=== PATIENT | female | born 1995 | race Caucasian/White ===

== ENCOUNTER 2016-10-21 20:16 | Emergency (ER) | payer BC ==
[2016-10-21] MEDS ORDERED: ACETAMINOPHEN 325 MG TABLET PO ONE (21:23)
--- NOTE | 2016-10-21 21:24 | ER Document Report ---
ED Medical Screen (RME) - General Chief Complaint: Vaginal Bleeding Stated Complaint: ABDOMINAL PAIN Mode of Arrival: Ambulatory Information source: Patient Notes: 21 y/o F presents to ED complaining of intermittent vaginal bleeding and pelvic pain. Reports last menstrual period was irregular and unsure if she may be . I have greeted and performed a rapid initial assessment of this patient. A comprehensive ED assessment and evaluation of the patient, analysis of test results and completion of the medical decision making process will be conducted by additional ED providers. TRAVEL OUTSIDE OF THE [place] IN LAST 30 DAYS: No - Related Data Allergies/Adverse Reactions: amoxicillin Allergy (Verified 07/23/16 11:41) azithromycin [From Zithromax] Allergy (Verified 05/07/16 14:58) clarithromycin [From Biaxin] Allergy (Verified 05/07/16 14:58) Past Medical History Renal/ Medical History: Reports: Hx Ovarian Cysts Past Surgical History: Reports: Hx Appendectomy Physical Exam - General General appearance: Appears well, Alert In distress: None
--- NOTE | 2016-10-21 23:03 | ER Document Report ---
ED GI/ - General Chief Complaint: Vaginal Bleeding Stated Complaint: ABDOMINAL PAIN Time seen by provider: 23:00 Mode of Arrival: Ambulatory Information source: Patient TRAVEL OUTSIDE OF THE [place] IN LAST 30 DAYS: No - HPI Patient complains to provider of: Pelvic pain, Vaginal bleeding, Vaginal discharge Onset: Other - 2 weeks Timing/Duration: Gradual, Persistent, Worse Quality of pain: Achy, Cramping Severity at maximum: Mild Severity in ED: Mild Location: Suprapubic, Pelvis Vaginal bleeding (Compared to normal period): Spotting, Heavier, Passing clots Menstrual period history: Abnormal Associated symptoms: Diarrhea, Nausea Exacerbated by: Denies Relieved by: Denies Similar symptoms previously: No Recently seen / treated by doctor: No Notes: 10/21/16 23:01 Patient is a 21-year-old female with a history of ovarian cysts and hypothyroidism who presents to the emergency room complaining of abnormal vaginal bleeding, states she was supposed to start her menstrual cycle on 2016, 2 days prior to that she started having light spotting, today she started having heavier bleeding with passage of clots and pelvic cramping, states she did test at home which stated "invalid", she reports some nausea and mild diarrhea today, no fever or chills, prior to vaginal bleeding she reports some yellowish vaginal discharge, patient received Tylenol prior to my evaluation and reports her pain and cramping is resolved, patient has no previous pregnancies - Related Data Allergies/Adverse Reactions: amoxicillin Allergy (Verified 07/23/16 11:41) azithromycin [From Zithromax] Allergy (Verified 05/07/16 14:58) clarithromycin [From Biaxin] Allergy (Verified 05/07/16 14:58) Past Medical History - General Information source: Patient - Social History Smoking Status: Current Every Day Smoker Family History: Reviewed & Not Pertinent Patient has suicidal ideation: No Patient has homicidal ideation: No Renal/ Medical History: Reports: Hx Ovarian Cysts. Denies: Hx Peritoneal Dialysis Past Surgical History: Reports: Hx Appendectomy Review of Systems - Review of Systems Constitutional: No symptoms reported EENT: No symptoms reported Cardiovascular: No symptoms reported Respiratory: No symptoms reported Gastrointestinal: See HPI Genitourinary: See HPI Female Genitourinary: See HPI Musculoskeletal: No symptoms reported Skin: No symptoms reported Hematologic/Lymphatic: No symptoms reported Neurological/Psychological: No symptoms reported -: Yes All other systems reviewed and negative Physical Exam - Vital signs Interpretation: Normal - General General appearance: Appears well, Alert - HEENT Head: Normocephalic, Atraumatic Eyes: Normal Pupils: PERRL - Respiratory Respiratory status: No respiratory distress Chest status: Nontender Breath sounds: Normal Chest palpation: Normal - Cardiovascular Rhythm: Regular Heart sounds: Normal auscultation Murmur: No - Abdominal Inspection: Normal Distension: No distension Bowel sounds: Normal Tenderness: Nontender Organomegaly: No organomegaly - Genitourinary External exam: Normal Speculum exam: Cervix closed Vaginal bleeding: Mild Bimanuel exam: Other - Left adnexal tenderness - Back Back: Normal, Nontender - Extremities General upper extremity: Normal inspection, Nontender, Normal color, Normal ROM , Normal temperature General lower extremity: Normal inspection, Nontender, Normal color, Normal ROM , Normal temperature, Normal weight bearing. No: Canelo's sign - Neurological Neuro grossly intact: Yes Cognition: Normal Orientation: AAOx4 Rodríguez Coma Scale Eye Opening: Spontaneous Rodríguez Coma Scale Verbal: Oriented Rodríguez Coma Scale Motor: Obeys Commands [place] Coma Scale Total: 15 Speech: Normal Motor strength normal: LUE, RUE, LLE, RLE Sensory: Normal - Psychological Associated symptoms: Normal affect, Normal mood - Skin Skin Temperature: Warm Skin Moisture: Dry Skin Color: Normal Course - Re-evaluation Re-evalutation: 10/21/16 23:41 Patient reports the same sexual partner times the past year, she has been treated for sexually transmitted disease in September 2015, as has her partner been treated previously, she reports only one partner at the present time, and does not relate any concern for sexually transmitted disease at the current 10/22/16 01:50 Lab findings were discussed with patient at bedside which are relatively unremarkable she was discharged with prescription for Motrin 600 mg and instructions to follow-up with her primary care provider and [facility] within the next 2-3 days or return if symptoms worsen, patient acknowledges understanding and agreement with this plan - Laboratory Result Diagrams: 10/21/16 23:32 10/21/16 23:32 Laboratory results interpreted by me: 10/21/16 10/21/16 21:45 23:32 Eosinophils % 6.1 H Urine Blood MODERATE H Discharge - Discharge Clinical Impression: Dysfunctional uterine bleeding Condition: Stable Disposition: HOME, SELF-CARE Instructions: Dysfunctional Uterine Bleeding ([facility]), [facility] Additional Instructions: Follow up with your primary care provider and [facility] in one to 2 days. Return to the emergency room immediately if symptoms worsen or any additional concerns. Prescriptions: Ibuprofen [Motrin 600 Mg Tablet] 600 mg PO TID #30 tablet Forms: Return to Work
[2016-10-21 23:34] LABS: APPEARANCE,URINE SLIGHTLY-CLOUDY; BILIRUBIN,URINE NEGATIVE (NEGATIVE); GLUCOSE, URINE NEGATIVE (NEGATIVE); KETONES,URINE NEGATIVE (NEGATIVE); LEUKOCYTE ESTERASE,URINE NEGATIVE (NEGATIVE); NITRITE,URINE NEGATIVE (NEGATIVE); PROTEIN,URINE NEGATIVE (NEGATIVE); URINE SPECIFIC GRAVITY 1.023; UROBILINOGEN,URINE NEGATIVE mg/dL (<2.0)
[2016-10-21 23:40] LABS: ABSOLUTE BASOPHILS # (AUTO) 0.1 10^3/uL (0.0-0.2); ABSOLUTE EOSINOPHILS # (AUTO) 0.6 10^3/uL (0.0-0.6); ABSOLUTE MONOCYTES (AUTO) 0.6 10^3/uL (0.1-1.4); ABSOLUTE NEUT (AUTO) 5.6 10^3/uL (1.7-8.2); BASOPHILS % (AUTO) 0.8 % (0-2); EOSINOPHILS % (AUTO) 6.1 % (0-6); HEMATOCRIT 43.9 % (36.0-47.0); HEMOGLOBIN 14.4 g/dL (12.0-15.5); HGB HCT DIFFERENCE -0.7; LYMPHOCYTES % (AUTO) 30.4 % (13-45); MEAN CORPUSCULAR HGB CONC 32.7 g/dL (32.0-36.0); MEAN CORPUSCULAR VOLUME 86 fl (80-97); MONOCYTES % (AUTO) 5.9 % (3-13); RED BLOOD COUNT 5.13 10^6/uL (3.72-5.28); SEGMENTED NEUTROPHILS % (AUTO) 56.8 % (42-78); WHITE BLOOD COUNT 9.9 10^3/uL (4.0-10.5)
[2016-10-22] LABS: ALANINE AMINOTRANSFERASE 39 U/L (9-52); ALBUMIN 4.2 g/dL (3.5-5.0); ALKALINE PHOSPHATASE 95 U/L (38-126); ANION GAP 14 (5-19); ASPARTATE AMINO TRANSFERASE 26 U/L (14-36); BILIRUBIN,TOTAL 0.4 mg/dL (0.2-1.3); BLOOD UREA NITROGEN 12 mg/dL (7-20); CALCIUM 9.4 mg/dL (8.4-10.2); CARBON DIOXIDE 24 mmol/L (22-30); CHLORIDE 105 mmol/L (98-107); CREATININE RESULT 0.73 mg/dL (0.52-1.25); GLUCOSE 80 mg/dL (75-110); POTASSIUM 4.2 mmol/L (3.6-5.0); SODIUM 143.4 mmol/L (137-145); TOTAL PROTEIN 6.9 g/dL (6.3-8.2)
[2016-10-22 01:17] LABS: CHLAM PCR NOT DETECTED (NOT DETECT)
[2016-10-22 02:04] VITALS: BP 114/78
== END 2016-10-22 02:00 | disposition home or self-care (01) ==
LOC: ER 20:16
DX: N93.8 Other specified abnormal uterine and vaginal bleeding (principal); R10.2 Pelvic and perineal pain; N89.8 Other specified noninflammatory disorders of vagina; R19.7 Diarrhea, unspecified; R11.0 Nausea; F17.200 Nicotine dependence, unspecified, uncomplicated; Z87.42 Personal history of other diseases of the female genital tract; Z88.0 Allergy status to penicillin; Z88.1 Allergy status to other antibiotic agents; Z90.49 Acquired absence of other specified parts of digestive tract
CPT/HCPCS: 36415; 80053; 81001; 83690; 84703; 85025; 87210; 87491; 87591; 99284

== ENCOUNTER 2017-02-23 16:43 | Emergency (ER) | payer BC ==
[2017-02-23] MEDS ORDERED: NORMAL SALINE 1000 ML 1,000 ML IV PRN (17:17)
[2017-02-23] MEDS ORDERED: ONDANSETRON 4 MG TAB.RAPDIS SL ONE (17:17)
--- NOTE | 2017-02-23 17:18 | ER Document Report ---
ED Medical Screen (RME) - General Chief Complaint: Headache Stated Complaint: HEADACHE,BLOOD IN FECES,ABDOMINAL PAIN Time Seen by Provider: 02/23/17 17:16 Mode of Arrival: Ambulatory Information source: Patient TRAVEL OUTSIDE OF THE [place] IN LAST 30 DAYS: No - HPI Patient complains to provider of: Headache, abdominal pain, bloody stools Onset: Yesterday Quality of pain: Cramping, Fullness, Pressure Severity: Moderate Pain Level: 3 Associated Symptoms: Headache, Nausea Exacerbated by: Denies Relieved by: Denies Similar symptoms previously: Yes Recently seen / treated by doctor: No - Related Data Allergies/Adverse Reactions: amoxicillin Allergy (Verified 02/23/17 16:51) azithromycin [From Zithromax] Allergy (Verified 02/23/17 16:51) clarithromycin [From Biaxin] Allergy (Verified 02/23/17 16:51) Past Medical History Renal/ Medical History: Reports: Hx Ovarian Cysts. Denies: Hx Peritoneal Dialysis Past Surgical History: Reports: Hx Appendectomy Physical Exam - Vital signs Vitals: Temp Pulse Resp BP Pulse Ox 97.5 F 81 20 112/73 100 02/23/17 16:51 02/23/17 16:51 02/23/17 16:51 02/23/17 16:51 02/23/17 16:51 Course - Vital Signs Vital signs: Temp Pulse Resp BP Pulse Ox 97.5 F 81 20 112/73 100 02/23/17 16:51 02/23/17 16:51 02/23/17 16:51 02/23/17 16:51 02/23/17 16:51
[2017-02-23 18:18] LABS: ABSOLUTE BASOPHILS # (AUTO) 0.1 10^3/uL (0.0-0.2); ABSOLUTE EOSINOPHILS # (AUTO) 0.4 10^3/uL (0.0-0.6); ABSOLUTE LYMPHOCYTES (AUTO) 2.3 10^3/uL (0.5-4.7); ABSOLUTE MONOCYTES (AUTO) 0.6 10^3/uL (0.1-1.4); ABSOLUTE NEUT (AUTO) 5.8 10^3/uL (1.7-8.2); BASOPHILS % (AUTO) 0.9 % (0-2); EOSINOPHILS % (AUTO) 4.4 % (0-6); HEMATOCRIT 46.1 % (36.0-47.0); HEMOGLOBIN 15.6 g/dL (12.0-15.5); HGB HCT DIFFERENCE 0.7; LYMPHOCYTES % (AUTO) 25.2 % (13-45); MEAN CORPUSCULAR HEMOGLOBIN 28.3 pg (27.0-33.4); MEAN CORPUSCULAR HGB CONC 33.9 g/dL (32.0-36.0); MEAN CORPUSCULAR VOLUME 84 fl (80-97); MONOCYTES % (AUTO) 6.8 % (3-13); RED BLOOD COUNT 5.52 10^6/uL (3.72-5.28); RED CELL DISTRIBUTION WIDTH 13.1 % (11.5-14.0); SEGMENTED NEUTROPHILS % (AUTO) 62.7 % (42-78); WHITE BLOOD COUNT 9.3 10^3/uL (4.0-10.5)
[2017-02-23 18:28] LABS: APPEARANCE,URINE SLIGHTLY-CLOUDY; BILIRUBIN,URINE NEGATIVE (NEGATIVE); GLUCOSE, URINE NEGATIVE (NEGATIVE); KETONES,URINE NEGATIVE (NEGATIVE); LEUKOCYTE ESTERASE,URINE MODERATE (NEGATIVE); NITRITE,URINE NEGATIVE (NEGATIVE); PROTEIN,URINE NEGATIVE (NEGATIVE); URINE SPECIFIC GRAVITY 1.026; UROBILINOGEN,URINE NEGATIVE mg/dL (<2.0)
[2017-02-23 18:34] LABS: ALANINE AMINOTRANSFERASE 31 U/L (9-52); ALBUMIN 4.3 g/dL (3.5-5.0); ALKALINE PHOSPHATASE 116 U/L (38-126); ANION GAP 11 (5-19); ASPARTATE AMINO TRANSFERASE 22 U/L (14-36); BILIRUBIN,DIRECT 0.4 mg/dL (0.0-0.4); BILIRUBIN,TOTAL 0.7 mg/dL (0.2-1.3); BLOOD UREA NITROGEN 9 mg/dL (7-20); CALCIUM 9.7 mg/dL (8.4-10.2); CARBON DIOXIDE 25 mmol/L (22-30); CHLORIDE 105 mmol/L (98-107); CREATININE RESULT 0.67 mg/dL (0.52-1.25); GLUCOSE 94 mg/dL (75-110); LIPASE 56.4 U/L (23-300); POTASSIUM 3.9 mmol/L (3.6-5.0); SODIUM 140.8 mmol/L (137-145); TOTAL PROTEIN 7.4 g/dL (6.3-8.2)
[2017-02-23] MEDS ORDERED: BUTALB/ACETAMINOPHEN/CAFFEINE 1 TAB EACH PO ONE (18:44)
--- NOTE | 2017-02-23 18:50 | ER Document Report ---
ED General - General Chief Complaint: Headache Stated Complaint: HEADACHE,BLOOD IN FECES,ABDOMINAL PAIN Time Seen by Provider: 02/23/17 17:16 Mode of Arrival: Ambulatory Notes: Patient is a 21-year-old female with past medical history of morbid obesity, polycystic ovarian syndrome who presents with a multitude of complaints. Patient states that she has a headache, chronic low back pain, vaginal spotting , intermittent bleeding in her stool, nausea, lightheadedness, and dizziness. She states all these symptoms have been intermittent over the last several weeks to months. She is unable to clarify exactly why she came to the emergency department tonight other than stating "I want to figure out what is going on with me". She has not noted that anything seems to improve or worsen her symptoms. No known sick contacts. Last menstrual period was 3 weeks ago. She denies any associated weakness, numbness, chest pain, shortness of breath actual vomiting, or keagan blood in her stool. She notes that she occasionally has a small amount of blood in the toilet after she has difficulty straining to have a bowel movement. Notes that she typically has 2-3 bowel movements a week. She has not seen her primary care doctor regarding today's concerns. TRAVEL OUTSIDE OF THE [place] IN LAST 30 DAYS: No - Related Data Allergies/Adverse Reactions: amoxicillin Allergy (Verified 02/23/17 16:51) azithromycin [From Zithromax] Allergy (Verified 02/23/17 16:51) clarithromycin [From Biaxin] Allergy (Verified 02/23/17 16:51) Past Medical History - General Information source: Patient - Social History Smoking Status: Never Smoker Frequency of alcohol use: Occasional Drug Abuse: None Lives with: Spouse/Significant other Family History: Reviewed & Not Pertinent Patient has suicidal ideation: No Patient has homicidal ideation: No Renal/ Medical History: Reports: Hx Ovarian Cysts. Denies: Hx Peritoneal Dialysis Past Surgical History: Reports: Hx Appendectomy Review of Systems - Review of Systems Notes: Constitutional: Negative for fever. HENT: Negative for sore throat. Eyes: Negative for visual changes. Cardiovascular: Negative for chest pain. Respiratory: Negative for shortness of breath. Gastrointestinal: Positive for abdominal pain and constipation Genitourinary: Negative for dysuria. Musculoskeletal: Positive for back pain. Skin: Negative for rash. Neurological: Negative for headaches, weakness or numbness. 10 point ROS negative except as marked above and in HPI. Physical Exam - Vital signs Vitals: Temp Pulse Resp BP Pulse Ox 97.5 F 81 20 112/73 100 02/23/17 16:51 02/23/17 16:51 02/23/17 16:51 02/23/17 16:51 02/23/17 16:51 Interpretation: Normal Notes: PHYSICAL EXAMINATION: GENERAL: Well-appearing, well-nourished. Patient appears to be in actually no discomfort, playing on her cell phone, laughing with her significant other when I walk into the room HEAD: Atraumatic, normocephalic. EYES: Pupils equal round and reactive to light, extraocular movements intact, sclera anicteric, conjunctiva are normal. ENT: nares patent, oropharynx clear without exudates. Moist mucous membranes. NECK: Normal range of motion, supple without lymphadenopathy LUNGS: Breath sounds clear to auscultation bilaterally and equal. No wheezes rales or rhonchi. HEART: Regular rate and rhythm without murmurs ABDOMEN: Soft, nontender, normoactive bowel sounds. No guarding, no rebound. No masses appreciated. EXTREMITIES: Normal range of motion, no pitting or edema. No cyanosis. NEUROLOGICAL: No focal neurological deficits. Moves all extremities spontaneously and on command. PSYCH: Normal mood, normal affect. SKIN: Warm, Dry, normal turgor, no rashes or lesions noted. Course - Re-evaluation Re-evalutation: 02/23/17 18:45 Patient presents with multiple vague complaints that did not appear to be concerning for any acute life-threatening pathology. Vitals are within normal limits at triage and at time of discharge. Physical examination is unremarkable. Patient has tolerated oral intake without difficulty. Patient was not noted to be in distress at any point during their ER visit. At this time, based on the reassuring evaluation, I do not suspect an acute [place], pulmonary embolus, aortic dissection, acute intra-abdominal pathology, stroke, or sepsis. I have explained to the patient that her multitude of complaints as best evaluated by an outpatient primary care doctor. She has no blood in her stool at this time and admits to severe constipation with straining to have bowel movements which I anticipate is the explanation for her mild intermittent bloody stools. Will discharge with return precautions and follow-up recommendations. Verbal discharge instructions given a the bedside and opportunity for questions given. Medication warnings reviewed. Patient is in agreement with this plan and has verbalized understanding of return precautions and the need for primary care follow-up in the next 24-72 hours. - Vital Signs Vital signs: Temp Pulse Resp BP Pulse Ox 97.7 F 72 18 112/77 99 02/23/17 19:11 02/23/17 19:11 02/23/17 19:11 02/23/17 19:11 02/23/17 19:11 - Laboratory Result Diagrams: 02/23/17 18:07 02/23/17 18:07 Laboratory results interpreted by me: 02/23/17 02/23/17 18:07 18:07 RBC 5.52 H Hgb 15.6 H Urine Blood LARGE H Ur Leukocyte Esterase MODERATE H Discharge - Discharge Clinical Impression: Bloody stools, Lower abdominal pain Low back pain Qualifiers: Chronicity: chronic Back pain laterality: bilateral Sciatica presence: without sciatica Qualified Code(s): M54.5 - Low back pain Headache Qualifiers: Headache type: unspecified Headache chronicity pattern: acute headache Intractability: not intractable Qualified Code(s): R51 - Headache Constipation Qualifiers: Constipation type: unspecified constipation type Qualified Code(s): K59.00 - Constipation, unspecified Condition: Good Disposition: HOME, SELF-CARE Additional Instructions: Please return to the emergency room immediately if you experience any concerning symptoms including high fevers, severe headache, chest pain, difficulty breathing, abdominal pain, slurred speech, numbness or weakness in your arms or legs, or any other symptom that concerns you. Forms: Parent Work Note, Return to Work
[2017-02-23 19:13] VITALS: BP 112/77
== END 2017-02-23 19:11 | disposition home or self-care (01) ==
LOC: ER 16:43
DX: K92.1 Melena (principal); R10.9 Unspecified abdominal pain; R51 Headache; K59.00 Constipation, unspecified; G89.29 Other chronic pain; M54.5 Low back pain; R11.0 Nausea; E66.01 Morbid (severe) obesity due to excess calories; E28.2 Polycystic ovarian syndrome; Z88.0 Allergy status to penicillin; Z88.3 Allergy status to other anti-infective agents
CPT/HCPCS: 99284; 36415; 83690; 84703; 85025; 80053; 81001; J3490; S0119

== ENCOUNTER 2018-01-03 03:11 | Emergency (ER) | payer BC ==
[2018-01-03 06:51] LABS: ABSOLUTE BASOPHILS # (AUTO) 0.1 10^3/uL (0.0-0.2); ABSOLUTE EOSINOPHILS # (AUTO) 0.3 10^3/uL (0.0-0.6); ABSOLUTE LYMPHOCYTES (AUTO) 2.6 10^3/uL (0.5-4.7); ABSOLUTE MONOCYTES (AUTO) 0.5 10^3/uL (0.1-1.4); ABSOLUTE NEUT (AUTO) 6.1 10^3/uL (1.7-8.2); BASOPHILS % (AUTO) 0.9 % (0-2); EOSINOPHILS % (AUTO) 3.5 % (0-6); HEMATOCRIT 43.1 % (36.0-47.0); HEMOGLOBIN 14.5 g/dL (12.0-15.5); LYMPHOCYTES % (AUTO) 27.2 % (13-45); MEAN CORPUSCULAR HEMOGLOBIN 27.8 pg (27.0-33.4); MEAN CORPUSCULAR HGB CONC 33.7 g/dL (32.0-36.0); MEAN CORPUSCULAR VOLUME 83 fl (80-97); PLATELET COUNT 361 10^3/uL (150-450); RED BLOOD COUNT 5.23 10^6/uL (3.72-5.28); RED CELL DISTRIBUTION WIDTH 13.5 % (11.5-14.0); SEGMENTED NEUTROPHILS % (AUTO) 63.4 % (42-78); TOTAL CELLS COUNTED % (AUTO) 100 %; WHITE BLOOD COUNT 9.6 10^3/uL (4.0-10.5)
[2018-01-03 07:05] LABS: ALANINE AMINOTRANSFERASE 32 U/L (9-52); ALBUMIN 3.7 g/dL (3.5-5.0); ALKALINE PHOSPHATASE 92 U/L (38-126); ANION GAP 7 (5-19); ASPARTATE AMINO TRANSFERASE 17 U/L (14-36); BILIRUBIN,TOTAL 0.2 mg/dL (0.2-1.3); BLOOD UREA NITROGEN 14 mg/dL (7-20); CALCIUM 9.5 mg/dL (8.4-10.2); CARBON DIOXIDE 28 mmol/L (22-30); CHLORIDE 105 mmol/L (98-107); GLUCOSE 105 mg/dL (75-110); POTASSIUM 4.3 mmol/L (3.6-5.0); SODIUM 139.8 mmol/L (137-145); TOTAL PROTEIN 5.9 g/dL (6.3-8.2)
[2018-01-03 07:06] LABS: APPEARANCE,URINE SLIGHTLY-CLOUDY; BILIRUBIN,URINE NEGATIVE (NEGATIVE); COLOR,URINE YELLOW; GLUCOSE, URINE NEGATIVE (NEGATIVE); KETONES,URINE NEGATIVE (NEGATIVE); LEUKOCYTE ESTERASE,URINE MODERATE (NEGATIVE); NITRITE,URINE NEGATIVE (NEGATIVE); PROTEIN,URINE NEGATIVE (NEGATIVE); URINE SPECIFIC GRAVITY 1.031
--- NOTE | 2018-01-03 07:12 | ER Document Report ---
ED General - General Chief Complaint: Abdominal Pain Stated Complaint: ABDOMINAL PAIN Time Seen by Provider: 01/03/18 06:09 Notes: 22-year-old female presents to the ER complaining of pelvic pain. She denies any vaginal discharge. Describes the pain as crampy and aching rates it as moderate. Seibert makes it worse. She denies any questionable unprotected sexual contacts. She does have a history of ovarian cyst. Denies any fever or chills. Denies black bloody or tarry stools denies diarrhea or constipation. TRAVEL OUTSIDE OF THE [place] IN LAST 30 DAYS: No - Related Data Allergies/Adverse Reactions: amoxicillin Allergy (Verified 02/23/17 16:51) azithromycin [From Zithromax] Allergy (Verified 02/23/17 16:51) clarithromycin [From Biaxin] Allergy (Verified 02/23/17 16:51) Past Medical History - Social History Smoking Status: Current Some Day Smoker Chew tobacco use (# tins/day): Yes - 1/4 ppd Frequency of alcohol use: None Drug Abuse: None Family History: Reviewed & Not Pertinent Patient has suicidal ideation: No Patient has homicidal ideation: No Renal/ Medical History: Reports: Hx Ovarian Cysts. Denies: Hx Peritoneal Dialysis Past Surgical History: Reports: Hx Appendectomy Review of Systems - Review of Systems Constitutional: denies: Chills, Fever Cardiovascular: denies: Chest pain Gastrointestinal: Abdominal pain, Nausea. denies: Diarrhea, Vomiting Genitourinary: Pain, Other - Dyspareunia. denies: Discharge Female Genitourinary: Painful intercourse -: Yes All other systems reviewed and negative Physical Exam - Vital signs Vitals: Temp Pulse Resp BP Pulse Ox 97.6 F 86 20 108/80 100 01/03/18 03:15 01/03/18 03:15 01/03/18 03:15 01/03/18 03:15 01/03/18 03:15 - Notes Notes: GENERAL_APPEARANCE: well_nourished, alert, cooperative, no_acute_distress, no_ obvious_discomfort. VITALS: reviewed, see vital signs table. HEAD: no_swelling\tenderness on the head. EYES: conjunctiva_clear. NOSE: no_nasal_discharge. MOUTH: (-)decreased moisture. THROAT: no_tonsilar_inflammation, no_airway_obstruction. no_lymphadenopathy NECK: supple, no_neck_tenderness, (-)thyromegaly. BACK: no_back_tenderness. CHEST_WALL: no_chest_tenderness. LUNGS: no_wheezing, no_rales, no_rhonchi, (-)accessory muscle use, good air exchange bilateral. HEART: normal_rate, normal_rhythm, normal_S1, normal_S2, (-)S3, (-)S4, no_ murmur, no_rub. ABDOMEN: normal_BS, soft, suprapubic_abd_tenderness, (-)guarding, (-)rebound, no_organomegaly, no_abd_masses. PELVIC: There is some white discharge noted but no cervicitis no cervical motion tenderness no adnexal masses EXTREMITIES: good pulses in all_extremities, no_swelling\tenderness in the extremities, no_edema. SKIN: warm, dry, good_color, no_rash. MENTAL_STATUS: speech_clear, oriented_X_3, normal_affect, responds_ appropriately to questions. NEURO: Neg Motor or Sensory Deficits on exam, CN 2-12 intact, DTR 2+ symmetric x 4, No cerbellar signs Course - Re-evaluation Re-evalutation: 01/03/18 07:11 22-year-old female arrives with pelvic pain. Patient does have a history of ovarian cyst she has a long history of abnormal periods has seen an [facility] for for for dysfunctional uterine bleeding and they have trialed control pills to try to regulate her periods were getting a ultrasound to rule out any kind of ovarian torsion will do a pelvic exam to assess for STDs. Urinalysis for infection will get a to rule out any possibility of ectopic. 01/03/18 09:04 Ultrasound showed some follicles on the right ovarian cyst and some free fluid likely ruptured ovarian cyst. Patient did have some bacteria in the vaginal vault some very mild bacterial vaginosis I will give her a dose of Flagyl here. Otherwise gonorrhea and Chlamydia are not back but my suspicion is low based on exam. Spoke with the patient about the importance of following up with her [facility] for ovarian cyst. Also with her dysfunctional uterine bleeding the symptoms are all tied together and the [facility] may place her on different hormone therapy. She will be discharged home - Vital Signs Vital signs: Temp Pulse Resp BP Pulse Ox 97.6 F 86 20 108/80 100 01/03/18 03:15 01/03/18 03:15 01/03/18 03:15 01/03/18 03:15 01/03/18 03:15 - Laboratory Result Diagrams: 01/03/18 06:34 01/03/18 06:34 Laboratory results interpreted by me: 01/03/18 01/03/18 06:34 06:34 Total Protein 5.9 L Urine Urobilinogen 2.0 H Ur Leukocyte Esterase MODERATE H Discharge - Discharge Clinical Impression: Bacterial vaginosis Ovarian cyst Qualifiers: Laterality: right Qualified Code(s): N83.201 - Unspecified ovarian cyst, right side Condition: Good Disposition: HOME, SELF-CARE Instructions: Ovarian Cyst ([facility]), Vaginosis, Bacterial ([facility]) Additional Instructions: Please follow-up with your [facility] for further care
--- NOTE | 2018-01-03 07:31 | RADIOLOGY REPORT (SQ) ---
EXAM DESCRIPTION: U/S NON-OB PELVIS TV W/O DOP CLINICAL HISTORY: 22 years Female, Pelvic Pain COMPARISON: 07/23/2016 TECHNIQUE: Complete pelvic ultrasound with transvaginal imaging. FINDINGS: Uterus measures 5.2 x 4.7 x 3.2 cm. Endometrial thickness of 0.7 cm. Cervical length of 2.6 cm and closed. Nabothian cysts. No myometrial abnormalities. The right ovary measures 5.1 x 2.9 x 3.2 cm. Multiple small subcentimeter peripheral follicles which are almost certainly benign and requires no follow-up. The left ovary measures 3.4 x 2.3 x 2.5 cm. Limited color Doppler imaging demonstrates flow within the ovaries bilaterally. Small amount of free pelvic fluid. IMPRESSION: 1. Small amount of free pelvic fluid. This may be physiologic. 2. Multiple peripheral follicles identified in the right ovary. This could be seen with polycystic ovarian syndrome.
[2018-01-03 08:12] LABS: BACTERIA (WET MOUNT) 3+ BACTERIA SEEN; EPITHELIALS (WET MOUNT) 4+ EPITHELIALS SEEN; T.VAGINALIS (WET MOUNT) NO TRICHOMONAS SEEN; WBCS (WET MOUNT) 1+ WBCS SEEN; YEAST (WET MOUNT) NO YEAST SEEN
[2018-01-03] MEDS ORDERED: METRONIDAZOLE 500 MG TABLET PO ONE (09:05)
[2018-01-03 09:20] VITALS: BP 110/85
[2018-01-03 09:39] LABS: CHLAM PCR NOT DETECTED (NOT DETECT); GON PCR NOT DETECTED (NOT DETECT)
== END 2018-01-03 09:20 | disposition home or self-care (01) ==
LOC: ER 03:11
DX: N76.0 Acute vaginitis (principal); B96.89 Other specified bacterial agents as the cause of diseases classified elsewhere; N83.201 Unspecified ovarian cyst, right side; F17.210 Nicotine dependence, cigarettes, uncomplicated; R10.2 Pelvic and perineal pain; Z88.0 Allergy status to penicillin; Z88.3 Allergy status to other anti-infective agents
CPT/HCPCS: 36415; 76830; 80053; 81001; 81025; 85025; 87210; 87491; 87591; 99284

== ENCOUNTER 2020-06-22 21:51 | Emergency (ER) | payer SELFPAY ==
--- NOTE | 2020-06-22 22:43 | ER Document Report ---
ED Medical Screen (RME) - General Chief Complaint: Vaginal Bleeding Stated Complaint: VAGINAL BLEEDING-7 WEEKS PREG Time Seen by Provider: 06/22/20 22:34 TRAVEL OUTSIDE OF THE [place] IN LAST 30 DAYS: No - HPI Notes: 06/22/20 22:42 25-year-old female to the emergency department with complaints of dark red vaginal bleeding that began yesterday and has persisted today. Admits to some mild cramping but denies keagan abdominal pain. Denies nausea, vomiting. She states that she is approximately 7 weeks . She has not had a confirmed IUP on ultrasound. She states her last menstrual period was from May 07 through the . She states that she is seeing Dr. Davenport in [place]. This is her second and her first she had a spontaneous miscarriage at 6 weeks. She states the bleeding this time is a little bit different. I performed a brief medical screening exam on the patient determined that the patient needs further evaluation and management by main side provider. I have placed initial orders to help expedite care. - Related Data Allergies/Adverse Reactions: amoxicillin Allergy (Verified 02/23/17 16:51) azithromycin [From Zithromax] Allergy (Verified 02/23/17 16:51) clarithromycin [From Biaxin] Allergy (Verified 02/23/17 16:51) Past Medical History Renal/ Medical History: Reports: Hx Ovarian Cysts. Denies: Hx Peritoneal Dialysis Past Surgical History: Reports: Hx Appendectomy Physical Exam - Vital signs Vitals: Temp Pulse Resp BP Pulse Ox 98.1 F 76 20 127/60 H 99 06/22/20 21:58 06/22/20 21:58 06/22/20 21:58 06/22/20 21:58 06/22/20 21:58 Course - Vital Signs Vital signs: Temp Pulse Resp BP Pulse Ox 98.1 F 76 20 127/60 H 99 06/22/20 21:58 06/22/20 21:58 06/22/20 21:58 06/22/20 21:58 06/22/20 21:58
[2020-06-22 23:42] LABS: HEMATOCRIT 42.4 % (36.0-47.0); HEMOGLOBIN 14.7 g/dL (12.0-15.5); MEAN CORPUSCULAR HEMOGLOBIN 28.9 pg (27.0-33.4); MEAN CORPUSCULAR HGB CONC 34.7 g/dL (32.0-36.0); MEAN CORPUSCULAR VOLUME 83 fl (80-97); PLATELET COUNT 318 10^3/uL (150-450); RED BLOOD COUNT 5.09 10^6/uL (3.72-5.28); RED CELL DISTRIBUTION WIDTH 13.6 % (11.5-14.0); WHITE BLOOD COUNT 9.7 10^3/uL (4.0-10.5)
[2020-06-22 23:50] LABS: ANION GAP 10 (5-19); APPEARANCE,URINE SLIGHTLY-CLOUDY; BILIRUBIN,URINE NEGATIVE (NEGATIVE); BLOOD UREA NITROGEN 10 mg/dL (7-20); CALCIUM 8.9 mg/dL (8.4-10.2); CARBON DIOXIDE 24 mmol/L (22-30); CHLORIDE 104 mmol/L (98-107); COLOR,URINE YELLOW; GLUCOSE 85 mg/dL (75-110); GLUCOSE, URINE NEGATIVE (NEGATIVE); KETONES,URINE NEGATIVE (NEGATIVE); LEUKOCYTE ESTERASE,URINE SMALL (NEGATIVE); NITRITE,URINE NEGATIVE (NEGATIVE); POTASSIUM 3.8 mmol/L (3.6-5.0); PROTEIN,URINE NEGATIVE (NEGATIVE); URINE SPECIFIC GRAVITY 1.008; UROBILINOGEN,URINE NEGATIVE mg/dL (<2.0)
[2020-06-23 00:07] LABS: ABSOLUTE LYMPHOCYTES# (MANUAL) 2.4 10^3/uL (0.5-4.7); ABSOLUTE MONOCYTES # (MANUAL) 1.1 10^3/uL (0.1-1.4); BASOPHILS % (MANUAL) 0 % (0-2); EOSINOPHILS % (MANUAL) 2 % (0-6); LYMPHOCYTES % (MANUAL) 25 % (13-45); MONOCYTES % (MANUAL) 11 % (3-13); SEGMENTED NEUTROPHILS % (MAN) 62 % (42-78); TOTAL CELLS COUNTED 100
[2020-06-23 00:08] LABS: OVALOCYTES SLIGHT; PLATELET COMMENT ADEQUATE; POIKILOCYTOSIS SLIGHT; SCHISTOCYTES SLIGHT; TOXIC GRANULATION SLIGHT
--- NOTE | 2020-06-23 01:11 | RADIOLOGY REPORT (SQ) ---
Ultrasound OB transvaginal on 06/23/2020 at 12:13 AM Clinical indications: Vaginal bleeding, COMPARISON: None this FINDINGS: Multiple sonographic images are obtained throughout the pelvis by transabdominal and transvaginal approach, both transverse and sagittal images are obtained. Uterus measures approximately 8.8 x 5.3 x 6.2 cm. Nabothian cyst is noted in the cervix. The right ovary measures approximately 4.9 x 2.9 x 2.3 cm. Flow is demonstrated within the right ovary. There is a single early intrauterine with a gestational sac, yolk sac and small pole. Estimated gestational age by crown-rump length measurement is an approximate five week six day gestation. Positive cardiac activity is noted with a heart rate of 90 bpm. Gestational sac shape appears unremarkable. Gestation is too early for placental evaluation. The left ovary is not visualized. No adnexal mass or fluid collection is noted. IMPRESSION: Single early living approximate five week six day intrauterine .
--- NOTE | 2020-06-23 02:30 | ER Document Report ---
ED General - General Chief Complaint: OB Problem (<20wks) Stated Complaint: VAGINAL BLEEDING-7 WEEKS PREG Time Seen by Provider: 06/22/20 22:34 TRAVEL OUTSIDE OF THE [place] IN LAST 30 DAYS: No - HPI Notes: 25-year-old female presents with vaginal discharge. She states that before going to bed around 9:30 PM she was using the restroom, she noticed that on the tissue paper there was a light brown discharge. She denies any vaginal bleeding. Denies cramping. She is somewhere between 5 to 7 weeks , last menstrual period reportedly to be May 07. She is a G2, P0. She states that she is concerned because her last ended in a miscarriage. She sees OB in [place], has not had her initial ultrasound yet. - Related Data Allergies/Adverse Reactions: amoxicillin Allergy (Verified 02/23/17 16:51) azithromycin [From Zithromax] Allergy (Verified 02/23/17 16:51) clarithromycin [From Biaxin] Allergy (Verified 02/23/17 16:51) Home Medications: progesterone,thyroid med, vit Past Medical History - General Information source: Patient - Social History Smoking Status: Current Every Day Smoker Family History: Reviewed & Not Pertinent Renal/ Medical History: Reports: Hx Ovarian Cysts. Denies: Hx Peritoneal Dialysis Past Surgical History: Reports: Hx Appendectomy Review of Systems - Review of Systems Constitutional: denies: Fever EENT: No symptoms reported Cardiovascular: No symptoms reported Respiratory: No symptoms reported Gastrointestinal: No symptoms reported Genitourinary: denies: Burning, Dysuria Female Genitourinary: , Vaginal discharge. denies: Vaginal bleeding Musculoskeletal: No symptoms reported Skin: No symptoms reported Neurological/Psychological: No symptoms reported Physical Exam - Vital signs Vitals: Temp Pulse Resp BP Pulse Ox 98.1 F 76 20 127/60 H 99 06/22/20 21:58 06/22/20 21:58 06/22/20 21:58 06/22/20 21:58 06/22/20 21:58 - General General appearance: Appears well In distress: None - HEENT Head: Normocephalic, Atraumatic Pupils: PERRL - Respiratory Respiratory status: No respiratory distress - Cardiovascular Rhythm: Regular - Abdominal Inspection: Obese Tenderness: Nontender - Genitourinary External exam: No: Lesions Speculum exam: Cervix closed, Vaginal discharge Vaginal bleeding: None Bimanuel exam: No: Cervical motion tender, Adnexal tenderness - Extremities General lower extremity: No: Edema - Neurological Neuro grossly intact: Yes Orientation: AAOx4 - Psychological Associated symptoms: Normal affect - Skin Skin Temperature: Warm Course - Re-evaluation Re-evalutation: 25-year-old female in early first trimester , here with vaginal di scharge. She has picture on her phone, it appears to be a light brown discharge. She has had no bleeding. She is well-appearing, vitals are stable, abdomen is nontender. On exam her cervix is closed, there is some vaginal discharge present, no bleeding. A+ blood type. Quant is elevated to >19,000. She had an ultrasound performed which shows a single live intrauterine estimated to be about 5 weeks, heart rate was noted to be 90. I discussed this finding with patient. Discussed that cervix closed is a good sign, also no keagan blood, suspecting that discharge is likely physiologic. However at this time cannot guarantee a 100% successful , she voiced understanding. Additionally she has some bacteria in her urine, sent for culture, given that she is she was prescribed Macrobid. Pelvic swabs were performed, patient okay with going home before results. Encouraged her to keep OB appointment on the . Stable at time of discharge. - Vital Signs Vital signs: Temp Pulse Resp BP Pulse Ox 98.1 F 63 16 131/77 H 100 06/23/20 02:35 06/23/20 02:35 06/23/20 02:35 06/23/20 02:35 06/23/20 02:35 - Laboratory Result Diagrams: 06/22/20 23:15 06/22/20 23:15 Laboratory results interpreted by me: 06/22/20 06/22/20 23:15 23:15 Beta HCG, Quant 42367.00 H Urine Blood LARGE H Ur Leukocyte Esterase SMALL H - Diagnostic Test Radiology reviewed: Image reviewed, Reports reviewed Discharge - Discharge Clinical Impression: Vaginal discharge, Asymptomatic bacteriuria during in first trimester Condition: Stable Disposition: HOME, SELF-CARE Additional Instructions: Given that you had bacteria in your urine, you will be prescribed a course of antibiotics. You will be called if any of the pelvic swabs are positive. Please follow-up with your OB as planned. hormone level [phone] today Prescriptions: Nitrofurantoin Monohyd/M-Cryst [Macrobid 100 mg Capsule] 100 mg PO BID 7 Days #14 cap
[2020-06-23 02:35] VITALS: BP 131/77
[2020-06-23 03:29] LABS: RBCS (WET MOUNT) FEW RBCS SEEN; T.VAGINALIS (WET MOUNT) NO TRICHOMONAS SEEN; WBCS (WET MOUNT) 1+ WBCS SEEN; YEAST (WET MOUNT) YEAST SEEN
[2020-06-23 03:30] LABS: BACTERIA (WET MOUNT) 3+ BACTERIA SEEN; EPITHELIALS (WET MOUNT) 3+ EPITHELIALS SEEN
[2020-06-23 04:55] LABS: CHLAM PCR NOT DETECTED (NOT DETECT)
== END 2020-06-23 03:30 | disposition home or self-care (01) ==
LOC: ER 21:51
DX: O26.891 Other specified pregnancy related conditions, first trimester (principal); R82.71 Bacteriuria; N89.8 Other specified noninflammatory disorders of vagina; O99.331 Smoking (tobacco) complicating pregnancy, first trimester; Z3A.01 Less than 8 weeks gestation of pregnancy
CPT/HCPCS: 36415; 76817; 80048; 81001; 84702; 85025; 86900; 86901; 87086; 87210; 87491; 87591; 93976; 99284